=== PATIENT | female | born 1990 | race Caucasian/White ===

== ENCOUNTER 2018-04-11 09:18 | Emergency (ER) | payer OTHER ==
[~2018-04-11] VITALS: Ht 167.6 cm; Wt 83.8 kg
[2018-04-11 09:23] VITALS: BP 137/84
[2018-04-11] MEDS ORDERED: METOCLOPRAMIDE 5 MG/ML, 2ML IVPush ONE (10:00)
[2018-04-11] MEDS ORDERED: ACETAMINOPHEN 325 MG TABLET PO ONE (10:00)
[2018-04-11] MEDS ORDERED: DEXAMETHASONE 4 MG/ML, 1ML IVPush ONE (10:00)
[2018-04-11] MEDS ORDERED: SODIUM CHLORIDE 0.9% 1,000ML IVBOLUS ONE (10:00)
[2018-04-11] MEDS ORDERED: DIPHENHYDRAMINE 50 MG/ML, 1ML IVPush ONE (10:00)
[2018-04-11] MEDS ORDERED: KETOROLAC 30 MG/1 ML IVPush ONE (10:00)
[2018-04-11] MEDS ORDERED: SUMATRIPTAN 6MG/0.5ML SQ ONE ×2 (10:00→10:09)
[2018-04-11] MEDS ORDERED: SODIUM CHLORIDE FLUSH 10ML SYR IVF ONE (10:00)
[2018-04-11] MEDS ORDERED: DIPHENHYDRAMINE 50 MG/ML, 1ML ONE (10:07)
[2018-04-11] MEDS ORDERED: METOCLOPRAMIDE 5 MG/ML, 2ML ONE (10:08)
[2018-04-11] MEDS ORDERED: DEXAMETHASONE 4 MG/ML, 1ML ONE (10:08)
[2018-04-11] MEDS ORDERED: ACETAMINOPHEN 500 MG TABLET ONE (10:08)
[2018-04-11] MEDS ORDERED: KETOROLAC 30 MG/1 ML ONE (10:08)
== END 2018-04-11 11:21 | disposition home or self-care (01) ==
LOC: ED 11:10
DX: G43.119 Migraine with aura, intractable, without status migrainosus (principal)
CPT/HCPCS: 96372; 96374; 96375; 99284; J1100; J1200; J1885; J2765; J3030; J7030

== ENCOUNTER → 2018-05-30 | Outpatient (CLI) | payer OTHER ==
[2018-05-30 09:50] LABS: ALANINE AMINOTRANSFERASE 22 U/L (12-78); ALBUMIN 3.8 g/dL (3.4-5.0); ANION GAP 8 mmol/L (5-15); CALCIUM 8.4 mg/dL (8.5-10.1); CHLORIDE 106 mmol/L (98-107); CREATININE 0.77 mg/dL (0.55-1.02)
[2018-05-30 10:01] LABS: ALKALINE PHOSPHATASE 71 U/L (45-117); BILIRUBIN,TOTAL 0.3 mg/dL (0.2-1.0); TOTAL PROTEIN 7.2 g/dL (6.4-8.2)
== END | disposition home or self-care (01) ==
LOC: LAB 09:19
PROVIDERS: ATTEND Registered Nurse
DX: G43.711 Chronic migraine without aura, intractable, with status migrainosus (principal)
CPT/HCPCS: 36415; 80053; 84100; 84439; 84443

== ENCOUNTER → 2018-12-04 | Outpatient (CLI) | payer OTHER ==
[2018-12-04 07:56] LABS: BASOPHILS # (AUTO) 0.01 x10^3/uL (0-0.1); BASOPHILS % (AUTO) 0 % (0-1); EOSINOPHILS # (AUTO) 0.04 x10^3/uL (0-0.4); EOSINOPHILS % (AUTO) 1 % (1-7); LYMPHOCYTES # (AUTO) 1.91 x10^3/uL (1-3.4); LYMPHOCYTES % (AUTO) 37 % (22-44); MD NO; MEAN CORPUSCULAR HEMOGLOBIN 28.7 pg (27.0-34.8); MEAN CORPUSCULAR HGB CONC 32.7 g/dL (32.4-35.8); MEAN CORPUSCULAR VOLUME 87.8 fL (80-100); MEAN PLATELET VOLUME 8.8 fL (7.4-10.4); MONOCYTES # (AUTO) 0.33 x10^3/uL (0.2-0.8); MONOCYTES % (AUTO) 6 % (2-9); NEUTROPHILS # (AUTO) 2.91 x10^3/uL (1.8-6.8); NEUTROPHILS % (AUTO) 56 % (42-75); PLATELET COUNT 175 x10^3/uL (130-400); RED CELL DISTRIBUTION WIDTH 14.4 % (9.6-15.2)
[2018-12-04 08:05] LABS: ANION GAP 4 mmol/L (5-15); CALCIUM 8.8 mg/dL (8.5-10.1); CHLORIDE 110 mmol/L (98-107); CHOLESTEROL, TOTAL 147 mg/dL (140-239)
[2018-12-04 08:16] LABS: % IRON SATURATION 34 % (20-55); ALANINE AMINOTRANSFERASE 27 U/L (12-78); ALKALINE PHOSPHATASE 82 U/L (45-117); BILIRUBIN,TOTAL 0.6 mg/dL (0.2-1.0); CHOL/HDL RATIO 2.2; CREATININE 0.88 mg/dL (0.55-1.02); FREE T4 (FREE THYROXINE) 0.96 ng/dL (0.76-1.46); HDL CHOL % 46 % (28-40); HDL CHOLESTEROL (DIRECT) 67 mg/dL (40-60); IRON LEVEL 122 mcg/dL (50-170); LDL CHOLESTEROL,CALCULATED 71 mg/dL (54-169); LDL/HDL RATIO 1.1 (0.5-3.0); TOTAL IRON BINDING CAPACITY 354 mcg/dL (250-450); TRIGLYCERIDES 43 mg/dL (50-200); VLDL CHOLESTEROL 9 mg/dL (0-25)
== END | disposition home or self-care (01) ==
LOC: LAB 07:43
PROVIDERS: ATTEND Nurse Practitioner Primary Care
DX: R00.2 Palpitations (principal); R42 Dizziness and giddiness
CPT/HCPCS: 36415; 80053; 80061; 82728; 83540; 83550; 84439; 84443; 84481; 85025